=== PATIENT | female | born 1960 | race Hispanic/Latino ===

== ENCOUNTER 2019-04-21 17:49 | Emergency (ER) | payer OTHER ==
[~2019-04-21] VITALS: Ht 160 cm; Wt 68.0 kg
--- OUTSIDE RECORDS SUMMARY | 2019-04-21 17:52 | XMS REPORT | Clinical Summary ---
Author Author [facility] Organization [facility] Address Unknown Phone Unavailable Care Team Providers Care Sports Reporter Name Role Phone Uziel Mccoy, Devonet MCCOY PCP Allergies No Known Allergies Medications End Date Status Medication Sig Dispensed Refills Start Date Active furosemide (LASIX) 40 mg Take 40 mg by 0 tablet mouth daily. Active amLODIPine (NORVASC) 10 Take 10 mg by 0 mg tablet mouth daily. Active glipiZIDE (GLUCOTROL) 10 Take 10 mg by 0 MG tablet mouth daily. Active NON FORMULARY 20 Units 0 nightly. LEVEMIR FLEX TOUCH INSULIN (RDNA ORIGIN)INJECT ION 100 UNITS 1 ML 5X3 PREFILLED 10/22/2018 Discontinued furosemide (LASIX) 40 mg Take 40 mg by 0 tablet mouth 2 (two) times a day. 10/22/2018 Discontinued irbesartan (AVAPRO) 300 Take 300 mg 0 MG tablet by mouth nightly. 10/22/2018 Discontinued glipiZIDE (GLUCOTROL) 10 Take 10 mg by 0 MG tablet mouth 2 (two) times a day before meals. 10/22/2018 Discontinued amLODIPine (NORVASC) 10 Take 10 mg by 0 mg tablet mouth daily. 03/23/2019 Discontinued metFORMIN (GLUCOPHAGE) Take 1,000 mg 0 1,000 mg tablet by mouth 2 (two) times a day with meals. 12/16/2018 Discontinued omeprazole (PriLOSEC) 20 Take 20 mg by 0 MG capsule mouth daily. 10/22/2018 Discontinued ferrous sulfate 325 (65 Take 325 mg 0 FE) MG tablet by mouth daily with breakfast. 12/16/2018 Discontinued cholecalciferol, vitamin Take 5,000 0 D3, (VITAMIN D3) 1,000 Units by unit tablet mouth once a week. 11/21/2018 glipiZIDE (GLUCOTROL) 10 Take 1 tablet 60 tablet 0 02/16/201 MG tablet (10 mg total) 9 by mouth 2 (two) times a day before meals for 30 days. 11/21/2018 irbesartan (AVAPRO) 300 Take 1 tablet 30 tablet 0 MG tablet (300 mg 9 total) by mouth nightly for 30 days. 11/22/2018 amLODIPine (NORVASC) 10 Take 1 tablet 30 tablet 0 201 mg tablet (10 mg total) 9 by mouth daily for 30 days. 11/22/2018 febuxostat (ULORIC) 40 mg Take 1 tablet 30 tablet 0 tablet (40 mg total) 9 by mouth daily for 30 days. 11/05/2018 traMADol (ULTRAM) 50 mg Take 1 tablet 20 tablet 0 tablet (50 mg total) 9 by mouth every 6 (six) hours as needed for moderate pain for up to 20 doses. 01/05/2019 Discontinued glipiZIDE (GLUCOTROL) 10 Take 10 mg by 0 MG 24 hr tablet mouth daily. 03/23/2019 Discontinued irbesartan (AVAPRO) 300 Take 300 mg 0 MG tablet by mouth daily. Active Problems Problem Noted Date Anemia associated with chronic renal failure 03/17/2019 Iron deficiency anemia, unspecified 03/17/2019 Resolved Problems Problem Noted Date Resolved Date Acute renal failure (ARF) 10/20/2018 10/22/2018 Encounters Care Team Description Date Type Specialty Renaldo Looney MD Canceled (Patient) 03/27/2019 Infusion Neurology Renaldo Looney MD Anemia associated with chronic renal failure (Primary Dx); Iron deficiency anemia, unspecified iron deficiency anemia type 03/23/2019 Infusion Neurology Robert Diaz MD Elevated BUN (Primary Dx); Stage 2 chronic kidney disease; Hyperkalemia 01/05/2019 Emergency Emergency Medicine Toan Schmidt MD Other fatigue (Primary Dx) 12/16/2018 Emergency Emergency Medicine 12/16/2018 Travel Antonino Goetz MD 10/20/2018 Hospital General Internal Medicine - Encounter 10/22/2018 Antonino Goetz MD 10/20/2018 Orders Only General Internal Medicine Renaldo Looney MD Chronic kidney disease, stage III (moderate) (HCC) (Primary Dx) 10/19/2018 Lab Lab after 04/20/2018 Social History Date Tobacco Use Types Packs/Day Years Used Never Smoker Smokeless Tobacco: Never Used Alcohol Use Drinks/Week oz/Week Comments No Alcohol Habits Answer Date Recorded How often do you have a drink containing alcohol? Never 10/20/2018 How many drinks containing alcohol do you have on Not asked a typical day when you are drinking? How often do you have six or more drinks on one Not asked occasion? Sex Assigned at Date Recorded Not on file Industry Job Start Date Occupation Not on file Not on file Not on file Travel End Travel History Travel Start No recent travel history available. Last Filed Vital Signs Time Taken Vital Sign Reading 03/23/2019 11:33 AM CDT Blood Pressure 130/62 03/23/2019 11:33 AM CDT Pulse 73 03/23/2019 11:33 AM CDT Temperature 36.4 C (97.6 F) 03/23/2019 11:33 AM CDT Respiratory Rate 18 03/23/2019 11:33 AM CDT Oxygen Saturation 99% - Inhaled Oxygen - Concentration 03/23/2019 10:13 AM CDT Weight 67.1 kg (148 lb) 03/23/2019 10:13 AM CDT Height 160 cm (5' 3") 03/23/2019 10:13 AM CDT Body Mass Index 26.22 Plan of Treatment Health Maintenance Due Date Last Done Comments BREAST CANCER SCREENING 02/10/2010 COLONOSCOPY SCREENING 02/10/2010 SHINGLES VACCINES (#1) 02/10/2010 INFLUENZA VACCINE 04/06/2019 Procedures Comments Procedure Name Priority Date/Time Associated Diagnosis HC COMPLETE BLD COUNT STAT 01/05/2019 W/AUTO DIFF 7:48 PM CDT ESTIMATED GFR STAT 01/05/2019 7:31 PM CDT COMPREHENSIVE METABOLIC STAT 01/05/2019 PANEL 7:31 PM CDT INFLUENZA ANTIGEN Routine 12/16/2018 6:01 PM CDT ESTIMATED GFR STAT 12/16/2018 5:58 PM CDT B NATRIURETIC PEP, I-STAT Routine 12/16/2018 5:58 PM CDT TROPONIN, I-STAT Routine 12/16/2018 5:58 PM CDT COMPREHENSIVE METABOLIC STAT 12/16/2018 PANEL 5:58 PM CDT HC COMPLETE BLD COUNT STAT 12/16/2018 W/AUTO DIFF 5:58 PM CDT URIC ACID LEVEL STAT 12/16/2018 5:58 PM CDT XR CHEST 2 VW STAT 12/16/2018 5:54 PM CDT URINALYSIS STAT 12/16/2018 5:50 PM CDT ECG 12-LEAD STAT 12/16/2018 5:21 PM CDT POC GLUCOSE Routine 10/22/2018 7:33 AM RIM TECHNICIAN B NATRIURETIC PEPTIDE Routine 10/22/2018 5:10 AM RIM TECHNICIAN HC COMPLETE BLD COUNT Routine 10/22/2018 W/AUTO DIFF 5:10 AM RIM TECHNICIAN ESTIMATED GFR Routine 10/22/2018 4:00 AM RIM TECHNICIAN MAGNESIUM LEVEL Routine 10/22/2018 4:00 AM RIM TECHNICIAN BASIC METABOLIC PANEL Routine 10/22/2018 4:00 AM RIM TECHNICIAN CREATININE LEVEL, URINE, Routine 10/21/2018 RANDOM 10:20 PM RIM TECHNICIAN URIC ACID LEVEL, URINE, Routine 10/21/2018 RANDOM 10:20 PM RIM TECHNICIAN POC GLUCOSE Routine 10/21/2018 8:54 PM RIM TECHNICIAN HEMOGLOBIN & HEMATOCRIT Routine 10/21/2018 6:18 PM RIM TECHNICIAN POC GLUCOSE Routine 10/21/2018 3:54 PM RIM TECHNICIAN SURGICAL PATHOLOGY Routine 10/21/2018 REQUEST 1:38 PM RIM TECHNICIAN US NEEDLE BIOPSY Routine 10/21/2018 12:40 PM RIM TECHNICIAN POC GLUCOSE Routine 10/21/2018 9:17 AM RIM TECHNICIAN ESTIMATED GFR Routine 10/21/2018 5:15 AM RIM TECHNICIAN COMPLEMENT ACTIVITY, Routine 10/21/2018 TOTAL 5:15 AM RIM TECHNICIAN RHEUMATOID FACTOR Routine 10/21/2018 5:15 AM RIM TECHNICIAN C-REACTIVE PROTEIN Routine 10/21/2018 5:15 AM RIM TECHNICIAN SEDIMENTATION RATE Routine 10/21/2018 5:15 AM RIM TECHNICIAN T4, FREE Routine 10/21/2018 5:15 AM RIM TECHNICIAN THYROID STIMULATING Routine 10/21/2018 HORMONE 5:15 AM RIM TECHNICIAN HEMOGLOBIN A1C Routine 10/21/2018 5:15 AM RIM TECHNICIAN LIPID PANEL Routine 10/21/2018 5:15 AM RIM TECHNICIAN LDH Routine 10/21/2018 5:15 AM RIM TECHNICIAN CREATINE KINASE, TOTAL Routine 10/21/2018 (CPK) 5:15 AM RIM TECHNICIAN COMPREHENSIVE METABOLIC Routine 10/21/2018 PANEL 5:15 AM RIM TECHNICIAN HC COMPLETE BLD COUNT Routine 10/21/2018 W/AUTO DIFF 5:15 AM RIM TECHNICIAN POC GLUCOSE Routine 10/20/2018 8:25 PM RIM TECHNICIAN POC GLUCOSE Routine 10/20/2018 5:12 PM RIM TECHNICIAN URINALYSIS SCREEN AND Routine 10/20/2018 MICROSCOPY, WITH REFLEX 5:12 PM RIM TECHNICIAN TO CULTURE US RENAL Routine 10/20/2018 3:50 PM RIM TECHNICIAN CREATININE LEVEL, URINE, Routine 10/20/2018 RANDOM 1:30 PM RIM TECHNICIAN PROTEIN, URINE, RANDOM Routine 10/20/2018 1:30 PM RIM TECHNICIAN ESTIMATED GFR Routine 10/20/2018 1:30 PM RIM TECHNICIAN URIC ACID LEVEL Routine 10/20/2018 1:30 PM RIM TECHNICIAN THYROID STIMULATING Routine 10/20/2018 HORMONE 1:30 PM RIM TECHNICIAN T4, FREE Routine 10/20/2018 1:30 PM RIM TECHNICIAN PROTHROMBIN TIME WITH INR Routine 10/20/2018 1:30 PM RIM TECHNICIAN PREALBUMIN LEVEL Routine 10/20/2018 1:30 PM RIM TECHNICIAN LIPID PANEL Routine 10/20/2018 1:30 PM RIM TECHNICIAN CREATINE KINASE, TOTAL Routine 10/20/2018 (CPK) 1:30 PM RIM TECHNICIAN COMPREHENSIVE METABOLIC Routine 10/20/2018 PANEL 1:30 PM RIM TECHNICIAN HC COMPLETE BLD COUNT Routine 10/20/2018 W/AUTO DIFF 1:30 PM RIM TECHNICIAN B NATRIURETIC PEPTIDE Routine 10/20/2018 1:30 PM RIM TECHNICIAN SYPHILIS TREPONEMAL IGG Routine 10/20/2018 1:30 PM RIM TECHNICIAN HEMOGLOBIN A1C Routine 10/20/2018 1:30 PM RIM TECHNICIAN ANTISTREPTOLYSIN O Routine 10/20/2018 1:30 PM RIM TECHNICIAN HEPATITIS B CORE ANTIBODY Routine 10/20/2018 TOTAL 1:30 PM RIM TECHNICIAN HEPATITIS B SURFACE Routine 10/20/2018 ANTIBODY 1:30 PM RIM TECHNICIAN HEPATITIS B SURFACE Routine 10/20/2018 ANTIGEN 1:30 PM RIM TECHNICIAN HIV AG/AB COMBINATION Routine 10/20/2018 1:30 PM RIM TECHNICIAN HEPATITIS C ANTIBODY Routine 10/20/2018 1:30 PM RIM TECHNICIAN KARINA Routine 10/20/2018 1:30 PM RIM TECHNICIAN GLOMERULAR BASEMENT Routine 10/20/2018 MEMBRANE AB IGG (IFA) 1:30 PM RIM TECHNICIAN ANTI-NEUTROPHILIC Routine 10/20/2018 CYTOPLASMIC ABS PANEL 1:30 PM RIM TECHNICIAN C4 COMPLEMENT COMPONENT Routine 10/20/2018 1:30 PM RIM TECHNICIAN C3 COMPLEMENT COMPONENT Routine 10/20/2018 1:30 PM RIM TECHNICIAN URINE CULTURE Routine 10/20/2018 1:30 PM RIM TECHNICIAN ESTIMATED GFR Routine 10/19/2018 4:40 PM RIM TECHNICIAN PROTEIN, URINE, RANDOM Routine 10/19/2018 Chronic kidney disease, 4:40 PM RIM TECHNICIAN stage III (moderate) (HCC) CREATININE LEVEL, URINE, Routine 10/19/2018 Chronic kidney disease, RANDOM 4:40 PM RIM TECHNICIAN stage III (moderate) (HCC) ALBUMIN LEVEL Routine 10/19/2018 Chronic kidney disease, 4:40 PM RIM TECHNICIAN stage III (moderate) (HCC) URINALYSIS SCREEN AND Routine 10/19/2018 Chronic kidney disease, MICROSCOPY, WITH REFLEX 4:40 PM RIM TECHNICIAN stage III (moderate) TO CULTURE (HCC) PHOSPHORUS LEVEL Routine 10/19/2018 Chronic kidney disease, 4:40 PM RIM TECHNICIAN stage III (moderate) (HCC) HC COMPLETE BLD COUNT Routine 10/19/2018 Chronic kidney disease, W/AUTO DIFF 4:40 PM RIM TECHNICIAN stage III (moderate) (HCC) BASIC METABOLIC PANEL Routine 10/19/2018 Chronic kidney disease, 4:40 PM RIM TECHNICIAN stage III (moderate) (HCC) URINE CULTURE Routine 10/19/2018 4:40 PM RIM TECHNICIAN after 04/20/2018 Results * CBC with platelet and differential (01/05/2019 7:48 PM CDT) Only the most recent of 6 results within the time period is included. WBC 10.43 4.50 - 11.00 k/uL [facility] RBC 3.38 (L) 4.20 - 5.50 m/uL [facility] HGB 9.9 (L) 12.0 - 16.0 g/dL [facility] HCT 29.5 (L) 37.0 - 47.0 % [facility] MCV 87.3 82.0 - 100.0 fL [facility] MCH 29.3 27.0 - 34.0 pg [facility] MCHC 33.6 31.0 - 37.0 g/dL [facility] RDW - SD 42.9 37.0 - 55.0 fL [facility] MPV 10.9 8.8 - 13.2 fL [facility] Platelet count 234 150 - 400 k/uL [facility] Neutrophils 75.5 (H) 39.0 - 69.0 % [facility] Lymphocytes 16.5 (L) 25.0 - 45.0 % [facility] Monocytes 7.1 0.0 - 10.0 % [facility] Eosinophils 0.6 0.0 - 5.0 % [facility] Basophils 0.3 0.0 - 1.0 % [facility] Specimen Blood Performing Organization Address City/State/[place] [address] PATHOLOGY AND GENOMIC MEDICINE, [address] * Estimated GFR (01/05/2019 7:31 PM CDT) Only the most recent of 6 results within the time period is included. Estimated GFR 38 (A) mL/min/1.73 m2 [facility] Comment: UATSDIN CatergoryUnitsInte [place] rpretation EMERGENCY CARE G1 CENTER >=90 Normal or high G2 60-89Mildly decreased [id number] Mildly to moderately decreased [id number] Moderately to severely decreased G4 15-29Severely decreased G5 <15Kidney failure The eGFR was calculated using the Chronic Kidney Disease Epidemiology Collaboration (CKD-EPI) equation. Interpretation is based on recommendations of the National Kidney Foundation-Kidney Disease Outcomes Quality Initiative (NKF-KDOQI) published in 2014. Specimen Plasma specimen Performing Organization Address City/State/Zipcode Phone Number [address] [address] PATHOLOGY AND GENOMIC MEDICINE[address] * Comprehensive metabolic panel (01/05/2019 7:31 PM CDT) Only the most recent of 4 results within the time period is included. [facility] Signature Sodium 139 128 - 145 mEq/L [facility] Potassium 5.2 (H) 3.6 - 5.1 mEq/L [facility] CO2 20 18 - 33 mEq/L [facility] Chloride 102 98 - 108 mEq/L [facility] Glucose 227 (H) 73 - 118 mg/dL [facility] Calcium 9.9 8.0 - 10.3 mg/dL [facility] BUN 110 (H) 7 - 22 mg/dL [facility] Creatinine 1.5 (H) 0.5 - 0.9 mg/dL [facility] Alkaline 60 42 - 141 U/L [facility] phosphatase [facility] ALT 26 10 - 47 U/L [facility] AST 23 11 - 38 U/L [facility] Total bilirubin 0.5 0.2 - 1.6 mg/dL [facility] Albumin 3.8 3.3 - 5.5 g/dL [facility] Protein 8.5 (H) 6.4 - 8.1 g/dL [facility] Anion gap 17@ANIO (H) 7 - 15 mEq/L [facility] A/G ratio 0.8 0.7 - 3.8 [facility] Specimen Plasma specimen Performing Organization Address City/[facility]/Zipcode Phone Number [address] [address] PATHOLOGY AND GENOMIC MEDICINE, [facility] [address] * Influenza antigen (12/16/2018 6:01 PM CDT) Pathologist [facility] Influenza Negative for Influenza A/B [facility] antigen antigen. UATSDIN Comment: [place] Specimen Information EMERGENCY CARE Specimen Source: [facility] CENTER Specimen Site: Right Specimen Nares - Right Performing Organization Address City/State/Zipcode Phone [place] [address] PATHOLOGY AND GENOMIC MEDICINE, [address] * Troponin, I-Stat (12/16/2018 5:58 PM CDT) [facility] Troponin, 0.00 0.00 - 0.08 ng/mL [facility] I-Stat Comment: UATSDIN 0.09 - 1.49 [place] ng/mlMay EMERGENCY CARE indicate increased risk of CENTER acute coronary syndrome. >=1.5 ng/ml Consistent with acute myocardial infarction. The diagnostic value of a single normal or non-diagnostic result is questionable.Serial samples at 2-6 hour intervals are required to rule out acute myocardial injury. Specimen Plasma specimen Performing Organization Address City/[facility] Hospitalcode Phone [place] [address] PATHOLOGY AND GENOMIC MEDICINE[address] * B natriuretic pep, I-Stat (12/16/2018 5:58 PM CDT) [facility] BNP, I-Stat <20 0 - 100 pg/mL [facility] Specimen Blood Performing Organization Address City/State/Zipcode Phone [place] [address] PATHOLOGY AND GENOMIC MEDICINE, [address] * Uric acid level (12/16/2018 5:58 PM CDT) Only the most recent of 2 results within the time period is included. [facility] Uric acid 2.4 2.4 - 5.7 mg/dL [facility] Specimen Plasma specimen Performing Organization Address City/State/Zipcode Phone Number [facility] DEPARTMENT OF [address] [place] [address] PATHOLOGY AND [place] [address] HOSPITAL * XR Chest 2 Vw (12/16/2018 5:54 PM CDT) Specimen Narrative Performed At EXAMINATION:XR CHEST 2 VW [facility] CLINICAL HISTORY:weakness COMPARISON:None. FINDINGS: Two views of the chest demonstrate normal cardiomediastinal silhouette. Pulmonary vasculature is within normal limits. Both lungs are clear. No pleural disease is identified. Low lung volume is noted. Regional osseous structures is unremarkable. IMPRESSION: No radiographic evidence of acute cardiopulmonary process or active disease of the chest. [id number] Procedure Note Hm Interface, Radiology Results Incoming - 12/16/2018 6:05 PM CDT EXAMINATION: XR CHEST 2 VW CLINICAL HISTORY: weakness COMPARISON: None. FINDINGS: Two views of the chest demonstrate normal cardiomediastinal silhouette. Pulmonary vasculature is within normal limits. Both lungs are clear. No pleural disease is identified. Low lung volume is noted. Regional osseous structures is unremarkable. IMPRESSION: No radiographic evidence of acute cardiopulmonary process or active disease of the chest. [id number] Performing Organization Address City/[facility] Hospitalcode Phone Number [facility] [address] [place] [id number] * Urinalysis (12/16/2018 5:50 PM CDT) Glucose, UA Negative Negative [facility] Bilirubin, UA Negative Negative [facility] Ketones, UA Negative Negative [facility] Specific 1.010 1.001 - 1.035 [facility] gravity, UA [facility] Blood, UA Trace (A) Negative [facility] pH, UA 5.0 5.0 - 8.5 [facility] Protein, UA 1+ (A) Negative [facility] Urobilinogen, <2.0 <2.0 [facility] Nitrite, UA Negative Negative [facility] Leukocyte Negative Negative [facility] esterase, UA [facility] Color, UA Yellow [facility] Appearance, UA Clear [facility] Specimen Urine Performing Organization Address City/[facility] Hospitalcode Phone Number [address] [address] PATHOLOGY AND GENOMIC MEDICINE, [id number] [place] [address] * ECG 12 lead (12/16/2018 5:21 PM CDT) Ventricular 81 [facility] MUSE rate Atrial rate 81 [facility] MUSE AL interval 160 [facility] MUSE QRSD interval 134 [facility] MUSE QT interval 410 [facility] MUSE QTC interval 476 [facility] MUSE P axis 1 26 [facility] MUSE QRS axis 1 30 [facility] MUSE T wave axis 11 [facility] MUSE EKG impression Normal sinus rhythm-Right [facility] MUSE bundle branch block-Abnormal ECG-No previous ECGs available- Specimen Narrative Performed At Performing Organization Address City/[facility] [address] * POC glucose (10/22/2018 7:33 AM RIM TECHNICIAN) Only the most recent of 6 results within the time period is included. [facility] POC glucose 209 (H) 65 - 99 mg/dL [facility] Comment: UATSDIN [facility] Notified RN HOSPITAL Meter ID: [id number] [employer]: Dimas Gonsalez Specimen Performing Organization Address [facility] Hospitalcode Phone Number [facility] [place] [address] PATHOLOGY AND GENOMIC MEDICINE [address] * B natriuretic peptide (10/22/2018 5:10 AM RIM TECHNICIAN) Only the most recent of 2 results within the time period is included. [facility] BNP 17 0 - 100 pg/mL [facility] Specimen Blood Performing Organization Address City/State/Zipcode Phone Number [facility] [place] [address] PATHOLOGY AND GENOMIC MEDICINE [address] * Magnesium level (10/22/2018 4:00 AM RIM TECHNICIAN) [facility] Magnesium 2.4 1.6 - 2.6 mg/dL [facility] Specimen Plasma specimen Performing Organization Address City/State/Zipcode Phone Number [facility] [place] [address] PATHOLOGY AND GENOMIC MEDICINE [address] * Basic metabolic panel (10/22/2018 4:00 AM RIM TECHNICIAN) Only the most recent of 2 results within the time period is included. Sodium 138 135 - 148 mEq/L [facility] Potassium 3.8 3.5 - 5.0 mEq/L [facility] Chloride 104 98 - 112 mEq/L [facility] CO2 20 (L) 24 - 31 mEq/L [facility] Anion gap 14@ANIO 7 - 15 mEq/L [facility] BUN 57 (H) 6 - 20 mg/dL [facility] Creatinine 1.70 (H) 0.50 - 0.90 mg/dL [facility] Glucose 195 (H) 65 - 99 mg/dL [facility] Calcium 9.7 8.3 - 10.2 mg/dL [facility] Specimen Plasma specimen Performing Organization Address City/State/Zipcode Phone Number [facility] [place] [address] PATHOLOGY AND GENOMIC MEDICINE [address] * Uric acid level, urine, random (10/21/2018 10:20 PM RIM TECHNICIAN) Uric acid, 13 mg/dL [facility] Spec[facility] Urine Performing Organization Address City/State/Zipcode Phone Number [facility] [place] [address] PATHOLOGY AND GENOMIC MEDICINE [address] * Creatinine level, urine, random (10/21/2018 10:20 PM RIM TECHNICIAN) Only the most recent of 3 results within the time period is included. Creatinine, 28 mg/dL [place] urine, [facility] Specimen Urine Performing Organization Address City/State/Zipcode Phone Number [facility] [place] [address] PATHOLOGY AND GENOMIC MEDICINE [address] * Hemoglobin & hematocrit (10/21/2018 6:18 PM RIM TECHNICIAN) HGB 9.5 (L) 12.0 - 16.0 g/dL [facility] HCT 29.8 (L) 37.0 - 47.0 % [facility] Specimen Blood Performing Organization Address City/State/Zipcode Phone Number [facility] DEPARTMENT OF [address] [place] [address] PATHOLOGY AND GENOMIC MEDICINE [address] * Surgical pathology request (10/21/2018 1:38 PM RIM TECHNICIAN) [facility] DEPARTMENT OF PATHOLOGY AND GENOMIC MEDICINE Surgical See link below for PDF Lab [facility] DEPARTMENT pathology Report OF PATHOLOGY report AND GENOMIC MEDICINE Result status This is Final Report for [facility] DEPARTMENT [id number] OF PATHOLOGY AND GENOMIC MEDICINE Specimen Performing Organization Address City/[facility] Hospitalcode Phone Number [facility] DEPARTMENT OF [address] [place] [address] PATHOLOGY AND GENOMIC MEDICINE * US Needle Biopsy (10/21/2018 12:40 PM RIM TECHNICIAN) Specimen Narrative Performed At EXAMINATION:US NEEDLE BIOPSY HM [facility] CLINICAL INDICATION:Renal failureacute (kidney injury) TECHNIQUE: The risks, benefits, and alternatives were discussed with the patient and written informed consent was obtained. A time-out site and side procedure was performed. A site for needle entry was selected and the skin was prepped and draped in the usual sterile fashion. After local administration of 1% buffered lidocaine, a tiny dermatotomy was made. Using ultrasound guidance, 3 x 18-gauge core samples from [employer] device were obtained from the [place] left kidney. The specimens were reviewed with pathology and were deemed adequate.Gelfoam slurry was administered in the left perinephric space and along the needle track given minimal venous type bleeding through the needle on the first biopsy but not subsequent to it. The patient was discharged to the radiology recovery area for monitoring prior to discharge and was instructed to follow-up with the referring physician for the biopsy results. Conscious sedation: 1 mg of IV Versed and 50 mcg of IV fentanyl. The patient was monitored throughout the procedure by an independent trained observer with pulse oximetry, heart rate and blood pressure and in the postprocedure recovery area. Continuous [id number] monitoring for procedural sedation by me, the operating provider, was 20 minutes in duration. EBL: Minimal Complications: None apparent. Assistants: None. IMPRESSION: Successful ultrasound guided biopsy of [place] left kidney as described. *[facility]-[id number] Procedure Note Hm Interface, Radiology Results Incoming - 10/21/2018 1:50 PM RIM TECHNICIAN EXAMINATION: US NEEDLE BIOPSY CLINICAL INDICATION: Renal failure acute (kidney injury) TECHNIQUE: The risks, benefits, and alternatives were discussed with the patient and written informed consent was obtained. A time-out site and side procedure was performed. A site for needle entry was selected and the skin was prepped and draped in the usual sterile fashion. After local administration of 1% buffered lidocaine, a tiny dermatotomy was made. Using ultrasound guidance, 3 x 18-gauge core samples from [employer] device were obtained from the [place] left kidney. The specimens were reviewed with pathology and were deemed adequate. Gelfoam slurry was administered in the left perinephric space and along the needle track given minimal venous type bleeding through the needle on the first biopsy but not subsequent to it. The patient was discharged to the radiology recovery area for monitoring prior to discharge and was instructed to follow-up with the referring physician for the biopsy results. Conscious sedation: 1 mg of IV Versed and 50 mcg of IV fentanyl. The patient was monitored throughout the procedure by an independent trained observer with pulse oximetry, heart rate and blood pressure and in the postprocedure recovery area. Continuous [id number]-dg-[id number] monitoring for procedural sedation by me, the operating provider, was 20 minutes in duration. EBL: Minimal Complications: None apparent. Assistants: None. IMPRESSION: Successful ultrasound guided biopsy of [place] left kidney as described. *[facility]-[id number] Performing Organization Address [facility] Hospital[facility] Phone Number [facility] [address] [place] [address] * Sedimentation rate (10/21/2018 5:15 AM RIM TECHNICIAN) Sedimentation 63 (H) 0 - 20 mm/hr [facility] Specimen Blood Performing Organization Address City/[facility] Hospitalcode Phone Number [facility] DEPARTMENT [address] [address] PATHOLOGY AND GENOMIC MEDICINE [address] * Rheumatoid factor (10/21/2018 5:15 AM RIM TECHNICIAN) Rheumatoid <10 0 - 13 IU/mL [facility] Specimen Plasma specimen Performing Organization Address City/[facility] Phone Number [facility] [place] [address] PATHOLOGY AND GENOMIC MEDICINE [address] * Complement activity, total (10/21/2018 5:15 AM RIM TECHNICIAN) Pathologist [facility] Complement 135 60 - 144 [facility] activity, total Comment: INTERPRETIVE INFORMATION: Complement Activity, Total EIA 59 CAEUnits or less .......... Low 60-144CAE Units .............. Normal 145 Units or greater ....... High Performed by [employer], [address] [place] [id number] www.[employer], Nate Martines MD - Lab. Director Specimen Serum Performing Organization Address [facility] [place] [place] Phone Number [facility] [address] [place] [address] [facility] [address] [place] [address] * C-reactive protein (10/21/2018 5:15 AM RIM TECHNICIAN) [facility] CRP <0.30 0.00 - 0.50 mg/dL [facility] Specimen Plasma specimen Performing Organization Address City/[facility] [place] [place] Phone Number [facility] [place] [address] [address] * Thyroid stimulating hormone (10/21/2018 5:15 AM RIM TECHNICIAN) Only the most recent of 2 results within the time period is included. [facility] TSH 3.27 0.27 - 4.20 uIU/mL [facility] Specimen Plasma specimen Performing Organization Address City/[facility] Phone Number [facility] [place] [address] PATHOLOGY AND [facility] [address] * T4, free (10/21/2018 5:15 AM RIM TECHNICIAN) Only the most recent of 2 results within the time period is included. [facility] T4, free 1.6 0.9 - 1.7 ng/dL [facility] Specimen Plasma specimen Performing Organization Address City/[facility] Phone Number [facility] [place] [address] PATHOLOGY AND GENOMIC MEDICINE [address] * LDH (10/21/2018 5:15 AM RIM TECHNICIAN) Pathologist [facility] LDH 138 87 - 225 U/L [facility] Specimen Plasma specimen Performing Organization Address City/[facility] Phone Number [facility] [place] [address] PATHOLOGY AND [facility] [address] * Hemoglobin A1c (10/21/2018 5:15 AM RIM TECHNICIAN) Only the most recent of 2 results within the time period is included. [facility] Hemoglobin A1C 7.0 (H) 4.0 - 5.6 % [facility] Comment: [facility] HbA1c cutoffs for diagnosing HOSPITAL diabetes: 4.0% - 5.6%=normal 5.7% - 6.4%=increased risk for diabetes (prediabetes) >=6.5%=diabetes Goals for glycemic control (ADA 2016) < 7.0%Target for non adults with diabetes. More or less stringent targets may be appropriate for individual patients. <7.5% Target for Children and adolescents with type 1 diabetes. Specimen Blood Performing Organization Address City/[facility] Phone Number [facility] [place] [address] PATHOLOGY AND [facility] [address] * Creatine kinase, total (CPK) (10/21/2018 5:15 AM RIM TECHNICIAN) Only the most recent of 2 results within the time period is included. [facility] Creatine kinase 83 26 - 192 U/L [facility] Specimen Plasma specimen Performing Organization Address City/[facility] Phone Number [facility] [place] [address] PATHOLOGY AND [facility] [address] * Lipid panel (10/21/2018 5:15 AM RIM TECHNICIAN) Only the most recent of 2 results within the time period is included. [facility] Cholesterol 166 <200 mg/dL [facility] Triglycerides 225 (H) <150 mg/dL [facility] HDL cholesterol 39 (L) >40 mg/dL [facility] LDL cholesterol 103 (H)Comment: Result <100 mg/dL [facility] obtained by direct LDL [facility] Lipid panel [facility] interpretation Comment: [facility] Total Cholesterol HOSPITAL (mg/dL) <200 Desirable 200-239Borderline -high >=240High Triglycerides (mg/dL) <150 Normal 150-199Borderline -high 200-499High >=500Very high HDL Cholesterol (mg/dL) <40Low (male) <40Low (female) LDL Cholesterol (mg/dL) <100 Optimal 100-129Near or above optimal 130-159Borderline -high 160-189High >=190Very high Risk Catergories that modify LDL goals. Risk Catergories LDL goal (mg/dL) CHD and CHD risk equivalent<100 (10-year risk >20%) Multiple (2+) risk factors <130 (10-year risk=<20%) 0-1 risk factors <160 (<10-year risk) Defining levels of lipids in metabolic syndrome Triglycerides >=150 mg/dL HDL Cholesterol Men <40 mg/dL Women <40 mg/dL Non-HDL cholesterol is a second target for therapy in persons with high triglycerides (>=200 mg/dL) Specimen Plasma specimen Performing Organization Address City/State/Zipcode Phone Number [facility] DEPARTMENT OF [address] [place] [address] PATHOLOGY AND GENOMIC MEDICINE [address] * Urinalysis screen and microscopy, with reflex to culture (10/20/2018 5:12 PM RIM TECHNICIAN) Only the most recent of 2 results within the time period is included. Specimen site Clean catch [facility] Color, UA Straw [facility] Appearance, UA Clear [facility] Specific 1.011 1.001 - 1.035 [facility] gravity, [facility] pH, UA 5.0 5.0 - 8.5 [facility] Protein, UA 2+ (A) Negative [facility] Glucose, UA 1+ (A) Negative [facility] Ketones, UA Negative Negative [facility] Bilirubin, UA Negative Negative [facility] Blood, UA Negative Negative [facility] Nitrite, UA Negative Negative [facility] Urobilinogen, <2.0 <2.0 [facility] Leukocyte Negative Negative [facility] esterase, [facility] Epithelial <1 /HPF [facility] cells, [facility] WBC, UA 1 0 - 4 /HPF [facility] RBC, UA 2 0 - 5 /HPF [facility] Bacteria, UA None seen None seen [facility] Yeast, UA None seen [facility] Yeast with None seen [facility] pseudohyphae, [facility] Specimen Urine Performing Organization Address City/State/Zipcode Phone Number [facility] DEPARTMENT OF [address] [place] [address] PATHOLOGY AND GENOMIC MEDICINE [address] * US Renal (10/20/2018 3:50 PM RIM TECHNICIAN) Specimen Narrative Performed At Renal ultrasound, 10/20/2018 5:15 PM RADIANT Clinical history: Acute renal failure Comparison: None Technique: Grayscale and color Doppler ultrasound. Findings: Right kidney: 10.1 x 5.8 x 4.5 cm. Cortex thickness 1.4 cm. Normal kidney. Left kidney: 10.6 x 5.1 x 4.7 cm. Cortex thickness 1 cm. Normal kidney. Bladder: Normal Impression: Normal study. Procedure Note Interface, Radiology Results Incoming - 10/20/2018 5:19 PM RIM TECHNICIAN Renal ultrasound, 10/20/2018 5:15 PM Clinical history: Acute renal failure Comparison: None Technique: Grayscale and color Doppler ultrasound. Findings: Right kidney: 10.1 x 5.8 x 4.5 cm. Cortex thickness 1.4 cm. Normal kidney. Left kidney: 10.6 x 5.1 x 4.7 cm. Cortex thickness 1 cm. Normal kidney. Bladder: Normal Impression: Normal study. Performing Organization Address [facility]/Zipcode Phone Number [facility] [address] [place] [address] * Syphilis treponemal IgG (10/20/2018 1:30 PM RIM TECHNICIAN) Pathologist [facility] Syphilis Non-reactiveComment: Non-reactive [facility] treponemal IgG Non-reactive: No serological [facility] evidence of Syphilis infection HOSPITAL Specimen Serum Performing Organization Address City/State/Zipcode Phone Number [facility] DEPARTMENT OF [address] [place] [address] PATHOLOGY AND GENOMIC MEDICINE [address] * HIV Ag/Ab combination (10/20/2018 1:30 PM RIM TECHNICIAN) Pathologist [facility] HIV Ag/Ab Non-reactive Non-reactive [facility] Specimen Blood Performing Organization Address City/[facility] Phone Number [facility] [place] [address] PATHOLOGY AND [facility] [address] * Glomerular basement membrane Ab IgG (IFA) (10/20/2018 1:30 PM RIM TECHNICIAN) [facility] Glomerular Negative Negative [facility] basement Comment: membrane Ab INTERPRETIVE INFORMATION:GBM Ab, IgG (IFA) When present, IgG antibody to glomerular basement membrane (GBM) antigen detected by either indirect fluorescent antibody (IFA) or multiplex bead assay helps support a diagnosis of [place] syndrome.However, the combined result of both assays performed during initial evaluation improves the diagnostic sensitivity for disease. A positive result in one or both assays should be confirmed by renal biopsy. Test developed and characteristics determined by [facility]. See Compliance Statement D: [employer]/ Performed by [employer], [address] [place] [id number] www.[employer], Nate Martines MD - Lab. Director Specimen Serum Performing Organization Address [facility] Phone Number [facility] [address] [place] [address] [facility] [address] [place] [address] * Hepatitis C antibody (10/20/2018 1:30 PM RIM TECHNICIAN) [facility] Hepatitis C Ab Non-reactive Non-reactive [facility] Specimen Blood Performing Organization Address City/[facility] Phone Number [facility] [place] [address] PATHOLOGY AND [facility] [address] * Hepatitis B core antibody total (10/20/2018 1:30 PM RIM TECHNICIAN) [facility] Hepatitis B Non-reactive Non-reactive [facility] core total Ab [facility] Specimen Blood Performing Organization Address City/[facility]/Zipcode Phone Number [facility] [place] [address] PATHOLOGY AND GENOMIC MEDICINE [address] * Antistreptolysin O (10/20/2018 1:30 PM RIM TECHNICIAN) [facility] Antistreptolysi <20 0 - 200 IU/mL [facility] Specimen Blood Performing Organization Address City/[facility] Phone Number [facility] [place] [address] PATHOLOGY AND GENOMIC MEDICINE [address] * Protein, urine, random (10/20/2018 1:30 PM RIM TECHNICIAN) Only the most recent of 2 results within the time period is included. [facility] Protein, urine 52 mg/dL [facility] random [facility] Specimen Urine Performing Organization Address City/[facility] Phone Number [facility] [place] [address] PATHOLOGY AND [facility] [address] * Hepatitis B surface antibody (10/20/2018 1:30 PM RIM TECHNICIAN) [facility] Hepatitis B Non-reactive Non-reactive [facility] surface Ab [facility] Specimen Blood Performing Organization Address City/[facility] Phone Number [facility] [place] [address] PATHOLOGY AND [facility] [address] * Hepatitis B surface antigen (10/20/2018 1:30 PM RIM TECHNICIAN) [facility] Hepatitis B Non-reactive Non-reactive [facility] Ag [facility] Specimen Blood Performing Organization Address City/[facility] Phone Number [facility] [place] [address] PATHOLOGY AND [facility] [address] * Anti-neutrophilic cytoplasmic Abs panel (10/20/2018 1:30 PM RIM TECHNICIAN) [facility] ANCA screen Negative Negative [facility] Specimen Blood Performing Organization Address City/[facility] Phone Number [facility] [place] [address] PATHOLOGY AND GENOMIC MEDICINE [address] * Prothrombin time with INR (10/20/2018 1:30 PM RIM TECHNICIAN) [facility] Prothrombin 13.8 11.5 - 14.[address] [facility] INR 1.1 [facility] Comment: [facility] International Normalized HOSPITAL Ratio (INR) is a therapeutic monitoring tool for patients who are stable on oral anticoagulant therapy. An INR of 2.0-3.0 is suggested for deep vein thrombosis/pulmonary embolism. Specimen Blood Performing Organization Address City/[facility] Phone Number [facility] DEPARTMENT OF [address] [place] [address] * Urine culture (10/20/2018 1:30 PM RIM TECHNICIAN) Only the most recent of 2 results within the time period is included. Pathologist [facility] Urine culture SEE COMMENTComment: [facility] Bacteriuria screen negative. [facility] Specimen Performing Organization Address City/[facility] Phone Number [facility] DEPARTMENT [address] * C3 complement component (10/20/2018 1:30 PM RIM TECHNICIAN) Pathologist [facility] C3 complement 157 90 - 180 mg/dL [facility] Specimen Plasma specimen Performing Organization Address City/[facility] Phone Number [facility] [place] [address] PATHOLOGY [address] * C4 complement component (10/20/2018 1:30 PM RIM TECHNICIAN) [facility] C4 complement 21 10 - 40 mg/dL [facility] Specimen Plasma specimen Performing Organization Address [facility] Phone Number [facility] DEPARTMENT [address] * KARINA (10/20/2018 1:30 PM RIM TECHNICIAN) Pathologist [facility] KARINA screen Negative Negative [facility] Specimen Blood Performing Organization Address City/[facility] Phone Number [facility] [place] [address] PATHOLOGY [address] * Prealbumin level (10/20/2018 1:30 PM RIM TECHNICIAN) Pathologist [facility] Prealbumin 14 (L) 16 - 32 mg/dL [facility] Specimen Serum Performing Organization Address City/[facility] Phone Number [facility] [place] [address] PATHOLOGY [address] * Phosphorus level (10/19/2018 4:40 PM RIM TECHNICIAN) Phosphorus 4.5 2.4 - 4.5 mg/dL [facility] Specimen Plasma specimen Performing Organization Address City/State/Zipcode Phone Number [facility] DEPARTMENT [address] [address] PATHOLOGY AND GENOMIC MEDICINE [address] * Albumin level (10/19/2018 4:40 PM RIM TECHNICIAN) Albumin 4.2 3.5 - 5.0 g/dL [facility] Specimen Plasma specimen Performing Organization Address City/State/[facility] Phone Number [facility] [place] [address] PATHOLOGY [place] [address] HOSPITAL after 04/20/2018 Insurance Type Payer Benefit Subscriber ID Effective Phone Address Plan / Dates Group HMO UHC MEDICARE UHC xxxxxxxxx [id number] [employer] (MEDICARE- MEDICAID PLAN) Advance Directives Patient has advance care planning documents on file. For more information, tika bernard contact: [address] [address]
--- OUTSIDE RECORDS SUMMARY | 2019-04-21 17:52 | XMS REPORT ---
[facility] Address Unknown Phone Unavailable Care Team Providers Care Computer Security Coordinator Name Role Phone Unavailable Unavailable Payers Payer Name Policy Type Policy Number Effective Date Expiration Date Problems This patient has no known problems. Allergies, Adverse Reactions, Alerts Allergy Name Allergy Type Status Severity Reaction(s) Onset Date Inactive Date Treating Clinician Comments No Known Allergies DA Active U 2018-10-15 00:00:00 Medications This patient has no known medications. Results Test Description Test Time Test Comments Text Results Atomic Results Result Comments COMPREHENSIVE METABOLIC PANEL 2018-10-15 21:28:00 SODIUM (test code=NA) 133 mEq/L 134-147 POTASSIUM (test code=K) 4.4 mEq/L 3.4-5.0 CHLORIDE (test code=CL) 100 mEq/L 100-108 CARBON DIOXIDE (test code=CO2) 22 mEq/L 21-33 ANION GAP (test code=GAP) 15 0-20 GLUCOSE (test code=GLU) 287 mg/dL 70-110 BLOOD UREA NITROGEN (test code=BUN) 120 mg/dL 7-18 GLOMERULAR FILTRATION RATE (test code=GFR) 24.2 90-95 Units of measure=ml/min/1.73 m2 CREATININE (test code=CREAT) 2.1 mg/dL 0.6-1.3 TOTAL PROTEIN (test code=PROT) 10.2 g/dL 6.4-8.2 ALBUMIN (test code=ALB) 4.30 g/dL 3.4-5.0 CALCIUM (test code=CA) 9.9 mg/dL 8.0-10.5 BILIRUBIN TOTAL (test code=BILT) 0.30 mg/dL 0.0-1.0 SGOT/AST (test code=AST) 16 IUnit/L 15-37 SGPT/ALT (test code=ALT) 32 IUnit/L 15-65 ALKALINE PHOSPHATASE TOTAL (test code=ALKP) 96 IUnit/L 20-125 [id number] 21:28:00* Test Item Value Reference Range Comments LIPASE (test code=LIP) 529 IUnit/L 73-393 [id number] 21:28:00* Test Item Value Reference Range Comments MAGNESIUM (test code=MAG) 2.50 mg/dL 1.8-2.4 PROTHROMBIN [id number] 21:17:00* Test Item Value Reference Range Comments PROTHROMBIN TIME PATIENT (test code=PTP) 12.1 SECONDS 9.3-12.9 INTERNATIONAL NORMAL RATIO (test code=INR) 1.1 0.8-1.2 TARGET INR BY INDICATION Indication INR1. Prophylaxis of venous thrombosis 2.0 - 3.0 (orthopedic surgery), Prophylaxis of venous thrombosis (other than high-risk surgery), Treatment of Deep Vein Thrombosis/Pulmonary Embolism, Prevention of systemic embolism - Tissue heart valves, Acute Myocardial Infarction (to prevent systemic embolism), Valvular heart disease, Atrial Fibrillation, Bileaflet mechanical valve in aortic position.2. Mechanical prosthetic valves (high risk), 2.5 - 3.5 Presence of Lupus Anticoagulant or Antiphospholipid Antibodies, Prevention of systemic embolism - Acute Myocardial Infarction (to prevent recurrent infarct). URINALYSIS [id number] 21:13:00* Test Item Value Reference Range Comments UA COLOR (test code=COLU) STRAW YEL/STRAW UA APPEARANCE (test code=APPU) CLEAR CLEAR UA GLUCOSE DIPSTICK (test code=DGLUU) NEGATIVE NEGATIVE UA BILIRUBIN DIPSTICK (test code=BILU) NEGATIVE NEGATIVE UA KETONE DIPSTICK (test code=KETU) NEGATIVE NEGATIVE UA SPECIFIC GRAVITY (test code=SGU) 1.008 1.005-1.030 UA BLOOD DIPSTICK (test code=RODRIGO) NEGATIVE NEGATIVE UA PH DIPSTICK (test code=BARB) 5.0 5.0-7.0 UA PROTEIN DIPSTICK (test code=PROU) 1+ NEGATIVE UA UROBILINIOGEN DIPSTICK (test code=URO) 0.2 mg/dL 0.2-1.0 UA NITRITE DIPSTICK (test code=FRANCIS) NEGATIVE NEGATIVE UA LEUKOCYTE ESTERASE DIPSTICK (test code=LEUU) NEGATIVE NEGATIVE UA WBC (test code=WBCU) 0-3 WBC/HPF 0-3 UA RBC (test code=RBCU) 0-3 RBC/HPF 0-3 UA BACTERIA (test code=BACU) TRACE /HPF NONE SEEN UA SQUAMOUS CELLS (test code=SQU) 0-5 /HPF NONE SEEN UA HYALINE CAST (test code=HYALU) 6-10 /LPF NONE SEEN UA MUCUS (test code=MUCU) TRACE /LPF NONE SEEN CBC W/AUTO [id number] 21:06:00* Test Item Value Reference Range Comments WHITE BLOOD CELL (test code=WBC) 9.57 x10 3/uL 4.5-11.0 RED BLOOD CELL (test code=RBC) 3.41 x10 6/uL 3.54-5.02 HEMOGLOBIN (test code=HGB) 10.1 g/dL 11.0-15.0 HEMATOCRIT (test code=HCT) 31.2 % 33.0-45.0 MEAN CELL VOLUME (test code=MCV) 91.5 fL 81.0-99.0 MEAN CELL HGB (test code=MCH) 29.6 pg 27.0-33.0 MEAN CELL HGB CONCETRATION (test code=MCHC) 32.4 g/dL 33.0-37.0 RED CELL DISTRIBUTION WIDTH CV (test code=RDW) 12.3 % 11.5-14.5 RED CELL DISTRIBUTION WIDTH SD (test code=RDW-SD) 41.1 fL 37.0-54.0 PLATELET COUNT (test code=PLT) 289 x10 3/uL 150-400 MEAN PLATELET VOLUME (test code=MPV) 11.0 fL 7.0-9.0 NEUTROPHIL % (test code=NT%) 69.9 % 56.0-77.0 IMMATURE GRANULOCYTE % (test code=IG%) 0.3 % 0.0-2.0 LYMPHOCYTE % (test code=LY%) 19.1 % 14.0-32.0 MONOCYTE % (test code=MO%) 8.6 % 4.8-9.0 EOSINOPHIL % (test code=EO%) 1.5 % 0.3-3.7 BASOPHIL % (test code=BA%) 0.6 % 0.0-2.0 NUCLEATED RBC % (test code=NRBC%) 0.0 % 0-0 NEUTROPHIL # (test code=NT#) 6.69 x10 3/uL 2.0-7.6 IMMATURE GRANULOCYTE # (test code=IG#) 0.03 x10 3/uL 0.00-0.03 LYMPHOCYTE # (test code=LY#) 1.83 x10 3/uL 1.0-3.8 MONOCYTE # (test code=MO#) 0.82 x10 3/uL 0.1-0.8 EOSINOPHIL # (test code=EO#) 0.14 x10 3/uL 0.0-0.2 BASOPHIL # (test code=BA#) 0.06 x10 3/uL 0.0-0.2 NUCLEATED RBC # (test code=NRBC#) 0.00 x10 3/uL 0.0-0.1 MANUAL DIFF REQUIRED (test code=MDIFF) NO - XR CHEST 1 [id number] 20:59:00 FAX: Adin Rizvi MD [phone] [place]: St: PRE Name: MADELEINE ESTRADA [facility] : [birth year] Age/S: 58/F [address] [place] [address] Unit #: [id number] Loc: [address] [address] Phys: Adin Rizvi MD Acct: [id number] Dis Date: Status: PRE ER PHONE #: [phone] Exam Date: 10/15/20182057 FAX #: [phone] Reason: cp EXAMS: CPT CODE: [id number] XR CHEST 1 V 29249 Clinical Indication: Chest pain Comparison: None FINDINGS: The frontal chest ra diograph shows normal lung volumes without interstitial or airspace opacit ies, pleural effusions or pneumothorax. The heart is normal in siz e. The trachea is midline. There are no clinically significant os seous abnormalities noted. IMPRESSION: No chest radiogr aphic evidence of acute cardiopulmonary disease. SL: [id number] at 2058 Reported and signed by: Eyad Seaman M.D. CC: Adin Rizvi MD Technologist: Tricia Hernandez RT(R) Trnscrd Date/Time/By: 10/15/2018 (2058) : By: DebraLNV Orig Print D/T: S: 10/15/2018 (2101) PAGE 1 Signed Report TROPONIN-I [id number] 20:52:00* Test Item Value Reference Range Comments TROPONIN-I RAPID (test code=TROPIRAP) 0.00 ng/mL 0.00-0.08 Performed by certified cinder pit crane operator [facility] Global Task Force with joint leadership from the EuropeanSociety of Cardiology (ESC), the [place] [employer] (ACCF), the [place] [employer] Association(AHA) and the World Heart Federation (WHF) refined past criteria of myocardial infarction ([place]) with a universal definition of myocardial infarction that supports the use of cTnI as a preferred biomarker for myocardial injury. The universal definition of [place], according to this taskforce, is defined as a typical rise and gradual fall ofcardiac biomarkers (preferably troponin) with at least onevalue above the 99th percentile of the upper reference limit (URL) together with evidence of myocardial ischemia with at least one of the following:* ischemic symptoms,* pathological Q waves on electrocardiogram (ECG),* ischemic ECG changes,* or imaging evidence of new loss of viable myocardium or new regional wall motion abnormality. An elevated troponin value alone is not sufficient todiagnose a myocardial infarction. Rather, the patient sclinical presentation (history, physical exam) and ECGshould be used in conjunction with troponin in thediagnostic evaluation of suspected myocardial infarction. Aserial sampling protocol is recommended to facilitate the identification of temporal changes in troponin levels characteristic of [place].
[2019-04-21] MEDS ORDERED: KETOROLAC TROMETHAMINE 60 MG/2 ML VIAL IM ONE (18:00)
[2019-04-21] MEDS ORDERED: DIAZEPAM 2 MG TAB PO ONE (18:00)
[2019-04-21] MEDS ORDERED: DIAZEPAM 5 MG TAB PO ONE (18:15)
--- NOTE | 2019-04-21 20:15 | Diagnostic Imaging Report ---
Bilateral hip with pelvis 5 - views HISTORY: Hip pain radiating to lower extremity. COMPARISON: None FINDINGS: No displaced fracture. Osseous alignment is within normal limits. Bilateral degenerative changes of the hip and SI joints. Degenerative changes of the lower lumbar spine. Vascular calcifications. IMPRESSION: No acute radiographic abnormality. Signed by: Dr. Tony Cabrera M.D. on 04/21/2019 8:11 PM
[2019-04-21] MEDS ORDERED: MOTRIN200 MG PO (20:56)
[2019-04-21] MEDS ORDERED: ROBAXIN-750750 MG PO (20:56)
[2019-04-21 21:56] VITALS: BP 138/61
== END 2019-04-21 21:58 | disposition home or self-care (01) ==
LOC: ER 17:49
DX: M54.31 Sciatica, right side (principal)
CPT/HCPCS: 73521; 96372; 99283; J1885